=== PATIENT | female | born 2005 | race Caucasian/White ===

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

== ENCOUNTER 2024-01-26 11:20 | Emergency (ER) | payer MEDICAID ==
[~2024-01-26] VITALS: Ht 162.6 cm; Wt 50.0 kg
[2024-01-26 11:40] VITALS: BP 110/64
[2024-01-26 12:19] LABS: BASO # 0.07 K/mm3 (0.02-0.10); EOS # 0.03 K/mm3 (0.04-0.40); EOS % 0.4 % (0.1-4.0); HEMATOCRIT 40.4 % (35.0-45.0); HEMOGLOBIN 13.3 g/dL (12.0-15.0); LYMPH# 1.65 K/mm3 (1.20-3.40); MEAN CELL VOLUME 85 fl (78-95); MEAN CORPUSCULAR HEMOGLOBIN 28 pg (26-32); MEAN CORPUSCULAR HGB CONC 33 g/dL (33-37); MEAN PLATELET VOLUME 9.9 fl (7.4-10.4); MONO # 0.41 K/mm3 (0.10-0.60); PLATELET COUNT 336 K/mm3 (130-400); RED BLOOD COUNT 4.76 M/mm3 (4.10-5.30); RED CELL DISTRIBUTION WIDTH 14.8 % (11.5-14.5); WHITE BLOOD COUNT 7.8 K/mm3 (4.8-10.8)
[2024-01-26 12:25] LABS: ALBUMIN 4.1 g/dL (3.5-5.0)
[2024-01-26 12:26] LABS: SODIUM 140 mmol/L (136-145)
[2024-01-26 12:27] LABS: CALCIUM 9.2 mg/dL (8.3-10.5)
[2024-01-26 12:28] LABS: GLUCOSE 68 mg/dL (65-105); TOTAL PROTEIN 7.1 g/dL (6.4-8.3)
[2024-01-26 12:29] LABS: CARBON DIOXIDE 20 mmol/L (22-29)
[2024-01-26 12:30] LABS: TOTAL BILIRUBIN 0.5 mg/dL (0.2-1.2)
[2024-01-26 12:33] LABS: AST-SGOT 21 U/L (5-34)
[2024-01-26 12:35] LABS: ALT/SGPT 16 U/L (0-55)
[2024-01-26 12:43] LABS: TROPONIN-I < 0.030 ng/mL (0.00-0.033)
== END 2024-01-26 13:25 | disposition home or self-care (01) ==
LOC: ED 11:20
PROVIDERS: Physician Assistant
DX: R07.89 Other chest pain (principal); R51.9 Headache, unspecified; R45.851 Suicidal ideations; R45.88 Nonsuicidal self-harm
CPT/HCPCS: 90715